=== PATIENT | male | born 1960 | race Caucasian/White ===

== ENCOUNTER 2017-06-12 18:13 | Emergency (ER) | payer OTHER ==
[~2017-06-12] VITALS: Ht 182.9 cm; Wt 79.5 kg
[2017-06-12 18:20] VITALS: BP 128/89
[2017-06-12] MEDS ORDERED: DIPH,PERTUSS(ACELL),TET VAC/PF 0.5 ML IM-VACC ONE ×2 (18:30→19:10)
[2017-06-12] MEDS ORDERED: HYDROcodone/APAP 5/325 TABLET PO STA (19:09)
[2017-06-12] MEDS ORDERED: HYDROcodone/APAP 5/325 TABLET ONE (19:09)
[2017-06-12 19:23] LABS: HEMATOCRIT 49.2 % (39.2-51.8); HEMOGLOBIN 16.8 g/dL (13.7-18.0); WHITE BLOOD COUNT 10.6 x10^3/uL (3.4-10)
[2017-06-12 19:34] LABS: ASPARTATE AMINO TRANSFERASE 10 U/L (15-37); BLOOD UREA NITROGEN 8 mg/dL (7-18)
== END 2017-06-12 20:08 | disposition home or self-care (01) ==
LOC: ED 20:00
DX: S91.332A Puncture wound without foreign body, left foot, initial encounter (principal); F17.210 Nicotine dependence, cigarettes, uncomplicated; W22.09XA Striking against other stationary object, initial encounter; Y93.89 Activity, other specified; Y92.89 Other specified places as the place of occurrence of the external cause; Y99.8 Other external cause status
CPT/HCPCS: 36415; 80053; 85025; 90471; 90715